=== PATIENT | female | born 1970 | race Caucasian/White ===

== ENCOUNTER → 2017-02-08 | Outpatient (CLI) | payer BC ==
[~2017-02-08] MED LIST: MULT1TAB52 PO
--- NOTE | 2017-02-08 13:21 | RAD ---
DATE: 02/08/2017 EXAM: DIGITAL DIAGNOSTIC RT HISTORY: Six-month follow-up right breast abnormality. COMPARISON: 07/31/2016, 07/24/2016 This study was interpreted with the benefit of Computerized Aided Detection (CAD). The breast parenchyma shows scattered fibroglandular densities. Breast parenchyma level B. FINDINGS: There is a circumscribed mass seen in the lateral breast, mid depth, which corresponds with the previously described abnormality. This finding is stable. No additional suspicious calcifications or masses are identified. 6 month follow-up examination of the right breast is recommended, at which time the patient will need bilateral mammogram. IMPRESSION: 1. Stable circumscribed mass in the lateral right breast at mid depth. Probable benign findings. Six-month follow-up is advised at which time the patient should be scheduled for bilateral mammogram. BI-RADS CATEGORY: 3 PROBABLY BENIGN FINDING(S)-SHORT INTERVAL FOLLOW-UP SUGGESTED RECOMMENDED FOLLOW-UP: 6M 6 MONTH FOLLOW-UP PQRS compliance statement: Patient information was entered into a reminder system with a target due date 08/11/2017 for the next mammogram. Mammography is a sensitive method for finding small breast cancers, but it does not detect them all and is not a substitute for careful clinical examination. A negative mammogram does not negate a clinically suspicious finding and should not result in delay in biopsying a clinically suspicious abnormality. "Our facility is accredited by the [employer] Mammography [employer]."
== END | disposition home or self-care (01) ==
LOC: MAMMO 08:49
PROVIDERS: ATTEND Family Medicine
DX: N63 Unspecified lump in breast (principal)
CPT/HCPCS: G0206; 77065

== ENCOUNTER → 2017-09-09 | Outpatient (CLI) | payer OTHER ==
--- NOTE | 2017-09-09 08:55 | RAD ---
DATE: 09/09/2017 EXAM: MAMMO BATSHEVA DIAG BILAT HISTORY: 6 month follow-up COMPARISON: 02/08/2017 and 07/31/2016 This study was interpreted with the benefit of Computerized Aided Detection (CAD). FINDINGS: Breast Density: SCATTERED The breast parenchyma shows scattered fibroglandular densities. Breast parenchyma level B. There are no dominant suspicious masses, suspicious microcalcifications or evidence of architectural distortion. Small nodules identified in the bilateral breasts grossly similar to prior exam. IMPRESSION: Probably benign findings Recommended breast mammogram in 6 months. BI-RADS CATEGORY: 3 PROBABLE BENIGN-SHORT TERM F/U RECOMMENDED FOLLOW-UP: 6M 6 MONTH FOLLOW-UP PQRS compliance statement: Patient information was entered into a reminder system with a target due date 03/09/2018 for the next mammogram. Mammography is a sensitive method for finding small breast cancers, but it does not detect them all and is not a substitute for careful clinical examination. A negative mammogram does not negate a clinically suspicious finding and should not result in delay in biopsying a clinically suspicious abnormality. "Our facility is accredited by the [employer] Mammography [employer]."
== END | disposition home or self-care (01) ==
LOC: MAMMO 07:52
PROVIDERS: ATTEND Family Medicine
DX: R92.8 Other abnormal and inconclusive findings on diagnostic imaging of breast (principal)
CPT/HCPCS: 77066; G0279; 77062

== ENCOUNTER → 2018-03-17 | Outpatient (CLI) | payer OTHER ==
--- NOTE | 2018-03-18 12:32 | RAD ---
DATE: 03/17/2018 EXAM: MAMMO BATSHEVA DIASharmaine BILAT HISTORY: short-term imaging followup of a probably benign finding in the bilateral breast. COMPARISON: 09/09/2017 07/24/2016 05/24/2015 02/08/2017 Bilateral CC and MLO views of the breasts were performed. Bilateral breast tomosynthesis was performed in CC and MLO projections. This study was interpreted with the benefit of Computerized Aided Detection (CAD). The breast parenchyma is heterogeneously dense, which could reduce sensitivity of mammography. Breast parenchyma level C. FINDINGS: Benign calcifications are present. Bilateral well-circumscribed nodules are grossly stable in size. No suspicious masses, microcalcifications or architectural distortion is present to suggest malignancy in either breast. The visualized axillae are unremarkable. IMPRESSION: Bilateral well circumscribed breast nodules, stable. BI-RADS CATEGORY: 3 PROBABLY BENIGN FINDING(S)-SHORT INTERVAL FOLLOW-UP SUGGESTED RECOMMENDED FOLLOW-UP: 6M 6 MONTH FOLLOW-UP Diagnostic bilateral mammograms are recommended, as patient will be due for annual mammogram with possible ultrasound. PQRS compliance statement: Patient information was entered into a reminder system with a target due date for the next mammogram. Mammography is a sensitive method for finding small breast cancers, but it does not detect them all and is not a substitute for careful clinical examination. A negative mammogram does not negate a clinically suspicious finding and should not result in delay in biopsying a clinically suspicious abnormality. "Our facility is accredited by the [employer] Mammography [employer]."
== END | disposition home or self-care (01) ==
LOC: MAMMO 08:56
PROVIDERS: ATTEND Family Medicine
DX: N63.20 Unspecified lump in the left breast, unspecified quadrant (principal); N63.10 Unspecified lump in the right breast, unspecified quadrant
CPT/HCPCS: 77066; G0279; 77062

== ENCOUNTER → 2019-05-03 | Outpatient (CLI) | payer OTHER ==
--- NOTE | 2019-05-04 18:28 | RAD ---
DATE: 05/03/2019 EXAM: MAMMO BATSHEVATirso REID HISTORY: Abnormal mammogram COMPARISON: 07/24/2016, 09/09/2017, 03/17/2018 mammographic exams This study was interpreted with the benefit of Computerized Aided Detection (CAD). Breast Density: SCATTERED The breast parenchyma shows scattered fibroglandular densities. Breast parenchyma level B. FINDINGS: Multiple small masses are stable. No suspicious calcifications, new masses, or distortion. IMPRESSION: Stable BI-RADS CATEGORY: 2 BENIGN FINDING(S) RECOMMENDED FOLLOW-UP: 12M 12 MONTH FOLLOW-UP PQRS compliance statement: Patient information was entered into a reminder system with a target due date in one year for the next mammogram. Mammography is a sensitive method for finding small breast cancers, but it does not detect them all and is not a substitute for careful clinical examination. A negative mammogram does not negate a clinically suspicious finding and should not result in delay in biopsying a clinically suspicious abnormality. "Our facility is accredited by the [employer] Mammography [employer]."
== END | disposition home or self-care (01) ==
LOC: MAMMO 07:45
PROVIDERS: ATTEND Family Medicine
DX: R92.8 Other abnormal and inconclusive findings on diagnostic imaging of breast (principal)
CPT/HCPCS: 77066; G0279; 77062

== ENCOUNTER → 2020-05-09 | Outpatient (CLI) | payer OTHER ==
[~2020-05-09] MED LIST changes: +MULT-445 PO; -MULT1TAB52 PO
--- NOTE | 2020-05-09 14:24 | RAD ---
DATE: 05/09/2020 8:01 AM EXAM: MAMMO BATSHEVA SCREENING BILATERAL HISTORY: Screening COMPARISON: May 03, 2019 and March 17, 2018 Bilateral CC and MLO views of the breasts were performed. Bilateral breast tomosynthesis was performed in CC and MLO projections. This study was interpreted with the benefit of Computerized Aided Detection (CAD). FINDINGS: Breast Density: SCATTERED The breast parenchyma shows scattered fibroglandular densities. Breast parenchyma level B Benign-appearing right breast calcifications. Small bilateral breast masses, unchanged. No new suspicious masses, microcalcifications or architectural distortion is present to suggest malignancy in either breast. The visualized axillae are unremarkable. IMPRESSION: No mammographic evidence of malignancy. BI-RADS CATEGORY: 2 BENIGN FINDING(S) RECOMMENDED FOLLOW-UP: Annual screening mammography is recommended, unless clinically indicated sooner based on symptoms or change in physical exam. PQRS compliance statement: Patient information was entered into a reminder system with a target due date 12 months for the next mammogram. Mammography is a sensitive method for finding small breast cancers, but it does not detect them all and is not a substitute for careful clinical examination. A negative mammogram does not negate a clinically suspicious finding and should not result in delay in biopsying a clinically suspicious abnormality. "Our facility is accredited by the [employer] Mammography [employer]." NEEMAD
== END ==
LOC: MAMMO 07:50
PROVIDERS: ATTEND Family Medicine
DX: Z12.31 Encounter for screening mammogram for malignant neoplasm of breast (principal)
CPT/HCPCS: 77063; 77067

== ENCOUNTER → 2021-06-02 | Outpatient (CLI) | payer OTHER ==
--- NOTE | 2021-06-02 09:49 | RAD ---
INDICATION : Routine Screening. COMPARISON: Priors including May 2019 TECHNIQUE: Standard mammogram screening views of the bilateral breasts were obtained with 3D tomosynt hesis. CAD was utilized. FINDINGS: The breasts are scattered density. No definite suspicious mass. IMPRESSION: BI-RADS Category 1: Negative. The patient was placed into the recall system with a suggested recall date for follow up imaging. Mammography is the most sensitive method for finding small breast cancers, but it does not detect the m all and is not a substitute for careful clinical examination. A negative mammogram does not negate a clinically suspicious finding and should not result in delay in biopsying a clinically suspicious abnormality. Electronically signed by: Nader Corey MD (06/02/2021 9:46 AM) [id number]
== END ==
LOC: MAMMO 08:15
PROVIDERS: ATTEND Family Medicine
DX: Z12.31 Encounter for screening mammogram for malignant neoplasm of breast (principal)
CPT/HCPCS: 77063; 77067